=== PATIENT | female | born 1945 | race Caucasian/White ===

== ENCOUNTER → 2017-04-12 | Outpatient (CLI) | payer MEDICARE, OTHER | END | disposition home or self-care (01) | LOC: HKI 13:28 | DX: Z01.818 Encounter for other preprocedural examination (principal) | CPT/HCPCS: G0463 ==

== ENCOUNTER 2017-04-16 05:40 | Inpatient (IN) | payer MEDICARE, OTHER ==
[2017-04-16] MEDS: CEFAZOLIN 2 GM/50 ML (PMX) 50 ML (FOR WT < 120 KG) IVPB (06:00)
[2017-04-16] MEDS: ONDANSETRON 4 MG IV X 1 DOSE IV (06:22)
[2017-04-16] MEDS: ACETAMINOPHEN 1000MG/100ML IV 100 ML IVPB (06:22)
[2017-04-16] MEDS: LANSOPRAZOLE 30 MG CAP PO (06:23)
[2017-04-16] MEDS: DEXAMETHASONE 4 MG/ML 1 ML INJ IV (06:23)
[2017-04-16] MEDS ORDERED: CEFAZOLIN 1 GM INJ (07:22)
[2017-04-16] MEDS ORDERED: PROPOFOL 20 ML (07:22)
[2017-04-16] MEDS ORDERED: FENTAnyl 50 MCG/ML VIAL (07:23)
[2017-04-16] MEDS ORDERED: MIDAZOLAM 1 MG/ML 2 ML INJ (07:23)
[2017-04-16] MEDS ORDERED: ROPIVACAINE 0.2% 20 ML VIAL (07:30)
[2017-04-16] MEDS ORDERED: PHENYLephrine (100 MCG/ML) 5ML SYG (07:57)
[2017-04-16] MEDS ORDERED: KETOROLAC 30 MG INJ (08:20)
[2017-04-16] MEDS ORDERED: METOCLOPRAMIDE 10 MG INJ (08:20)
[2017-04-16] MEDS ORDERED: ONDANSETRON 4 MG INJ (08:20)
[2017-04-16] MEDS ORDERED: DEXAMETHASONE 4 MG/ML 1 ML INJ (08:20)
[2017-04-16] MEDS: TRANEXAMIC ACID 1,000 MG in D5W 100 ML AT INCISION X1 IVPB (08:25)
[2017-04-16] MEDS: TRANEXAMIC ACID 1,000 MG in D5W 100 ML AT CLOSURE X1 IVPB ×2 (08:26→09:23)
[2017-04-16] MEDS ORDERED: ROPIVACAINE 0.5 % 30 ML VIAL (08:59)
[2017-04-16] MEDS ORDERED: HYDROmorphONE 0.5 MG/0.5 ML SYG IV ×3 (09:00→15:30)
[2017-04-16] MEDS ORDERED: morphine 4 MG/ML VIAL IV ×2 (09:00→15:30)
[2017-04-16] MEDS ORDERED: NALBUPHINE HCL (10 MG/1 ML) INJ IV ×2 (09:00→15:30)
[2017-04-16] MEDS ORDERED: ACETAMINOPHEN 500 MG TAB PO ×2 (09:00→15:30)
[2017-04-16] MEDS ORDERED: morphine 2 MG INJ IV ×2 (09:00→15:30)
[2017-04-16] MEDS ORDERED: DIPHENHYDRAMINE 50 MG INJ IV ×4 (09:00→15:30)
[2017-04-16] MEDS ORDERED: HYDROCODONE/APAP (5/325) TAB PO ×2 (09:00→15:30)
[2017-04-16] MEDS ORDERED: ONDANSETRON 4 MG INJ IV ×4 (09:00→15:30)
[2017-04-16] MEDS ORDERED: NALOXONE (0.4 MG/ML) INJ IV ×3 (09:00→15:30)
[2017-04-16] MEDS ORDERED: NEOSTIGMINE 3 MG/3 ML SYRINGE (09:26)
[2017-04-16] MEDS ORDERED: GLYCOPYRROLATE 0.4 MG INJ (09:26)
[2017-04-16] MEDS: SOD CHLORIDE 0.9% 1,000 ML IV ×2 (09:33→22:03)
[2017-04-16] MEDS ORDERED: DIPHENHYDRAMINE 50 MG INJ IM (10:00)
[2017-04-16] MEDS ORDERED: BISACODYL 10 MG SUPP PR (10:00)
[2017-04-16] MEDS ORDERED: ZOLPIDEM 5 MG TAB PO (10:00)
[2017-04-16] MEDS ORDERED: SENNA/DOCUSATE NA (8.6MG/50MG) TAB PO (10:00)
[2017-04-16] MEDS ORDERED: MAGNESIUM HYDROXIDE 30ML CUP PO (10:00)
[2017-04-16] MEDS ORDERED: NA PHOSPHATE/BIPHOS 133 ML ENEMA PR (10:00)
[2017-04-16] MEDS ORDERED: oxyCODONE 5 MG TAB PO ×2 (10:00)
[2017-04-16] MEDS ORDERED: BETHANECHOL 25 MG TAB PO (10:00)
[2017-04-16] MEDS: CEFAZOLIN 1 GM/50 ML (PMX) 50 ML IVPB ×2 (10:23→17:28)
[2017-04-16] MEDS: ASPIRIN (EC) 325 MG TAB PO (10:23)
[2017-04-16] MEDS: DOCUSATE SODIUM 100 MG CAP PO (10:23)
[2017-04-16] MEDS: ONDANSETRON 4 MG INJ IV ×3 (10:24→22:00)
[2017-04-16] MEDS ORDERED: HYDROmorphONE (0.2 MG/ML) 10ML SYG IV ×6 (11:39→15:30)
[2017-04-16] MEDS: HYDROmorphONE (0.2 MG/ML) 10ML SYG IV (11:52)
[2017-04-16] MEDS ORDERED: LABETALOL HCL 20MG INJ IV ×2 (12:00→15:30)
[2017-04-16] MEDS ORDERED: MEPERIDINE 25 MG INJ IV ×2 (12:00→15:30)
[2017-04-16] MEDS ORDERED: FENTAnyl 50 MCG/ML VIAL IV ×6 (12:00→15:30)
[2017-04-16] MEDS ORDERED: METOCLOPRAMIDE 10 MG INJ IV (12:00)
[2017-04-16] MEDS ORDERED: OXYCODONE/ACETAMINOPHEN (5/325) TAB PO ×2 (12:00→15:30)
[2017-04-16] MEDS ORDERED: hydrALAzine 20 MG INJ IV ×2 (12:00→15:30)
[2017-04-16] MEDS ORDERED: EPHEDrine SULFATE 50 MG/5 ML SYG IV ×2 (12:00→15:30)
[2017-04-16] MEDS: KETOROLAC 15 MG INJ IV (12:46)
[2017-04-16] MEDS: LACTATED RINGER'S 1,000 ML IV ×2 (12:47→14:00)
[2017-04-16] MEDS ORDERED: RANITIDINE 150 MG TAB PO (13:00)
[2017-04-16] MEDS: oxyCODONE 5 MG TAB PO ×2 (13:39→17:23)
[2017-04-16] MEDS: CALCIUM/VITAMIN D (500/200) TAB PO ×2 (15:03→20:27)
[2017-04-16] MEDS ORDERED: ALBUMIN HUMAN 5% 250 ML IV (15:30)
[2017-04-16] MEDS: HYDROXYCHLOROQUINE 200 MG TAB PO (20:26)
[2017-04-16] MEDS: ATORVASTATIN 40 MG TAB PO (20:26)
[2017-04-16] MEDS: AMLODIPINE 5 MG TAB PO (20:27)
[2017-04-16] MEDS: GABAPENTIN 100 MG CAP PO (20:27)
[2017-04-16] MEDS ORDERED: BIFIDOBACTERIUM INFANTIS PO (21:00)
[2017-04-16] MEDS: LAMOTRIGINE 100 MG TAB PO (21:17)
[2017-04-16] MEDS: HYDROmorphONE 0.5 MG/0.5 ML SYG IV (21:58)
[2017-04-16] MEDS: CELECOXIB 100 MG CAP PO (21:58)
[2017-04-17] MEDS: CARISOPRODOL 350 MG TAB PO (00:31)
[2017-04-17] MEDS: oxyCODONE 5 MG TAB PO ×4 (00:32→17:07)
[2017-04-17] MEDS: CEFAZOLIN 1 GM/50 ML (PMX) 50 ML IVPB (02:14)
[2017-04-17] MEDS: ONDANSETRON 4 MG INJ IV (04:00)
[2017-04-17 05:17] LABS: ADD MAN DIFF? NO
[2017-04-17 05:19] LABS: WHITE BLOOD COUNT 10.2 10^3/ul (4.8-10.8)
[2017-04-17 05:19] LABS: BASOPHILS % 0.1 % (0.0-2.0); HEMATOCRIT 32.6 % (37.0-47.0); HEMOGLOBIN 10.5 g/dl (12.0-16.0); LYMPHOCYTES # 1.6 10^3/ul (0.8-2.9); LYMPHOCYTES % 15.5 % (15.0-51.0); MEAN CORPUSCULAR HEMOGLOBIN 30.3 pg (29.0-33.0); MEAN CORPUSCULAR HGB CONC 32.2 g/dl (32.0-37.0); MEAN CORPUSCULAR VOLUME 94.2 fl (82.0-101.0); MEAN PLATELET VOLUME 9.8 fl (7.4-10.4); MONOCYTES % 9.5 % (0.0-11.0); NEUTROPHIL # 7.6 10^3/ul (1.6-7.5); NEUTROPHILS % 74.6 % (39.0-77.0); PLATELET COUNT 246 10^3/UL (140-415); RED BLOOD COUNT 3.46 10^6/ul (4.20-5.40); RED CELL DISTRIBUTION WIDTH 13.2 % (11.5-14.5)
[2017-04-17 05:40] LABS: ANION GAP 12 (8-16); BLOOD UREA NITROGEN 14 mg/dl (7-20); CALCIUM 9.1 mg/dl (8.4-10.2); CARBON DIOXIDE 27 mmol/L (21-31); CHLORIDE 106 mmol/L (97-110); GLUCOSE 106 mg/dl (70-220); POTASSIUM 3.9 mmol/L (3.5-5.1); SODIUM 141 mmol/L (135-144)
[2017-04-17] MEDS: CELECOXIB 100 MG CAP PO (08:53)
[2017-04-17] MEDS: DOCUSATE SODIUM 100 MG CAP PO (08:53)
[2017-04-17] MEDS: VITAMIN B COMPLEX/VIT C CAP PO (08:53)
[2017-04-17] MEDS: ASPIRIN (EC) 325 MG TAB PO (08:54)
[2017-04-17] MEDS: DULOXETINE 30 MG CAP DR PO (08:54)
[2017-04-17] MEDS: FERROUS FUMARATE (SR) TAB PO (08:55)
[2017-04-17] MEDS: HYDROCHLOROTHIAZIDE 12.5 MG CAP PO (08:55)
[2017-04-17] MEDS: LAMOTRIGINE 100 MG TAB PO (08:56)
[2017-04-17] MEDS: GABAPENTIN 100 MG CAP PO (08:56)
[2017-04-17] MEDS: CALCIUM/VITAMIN D (500/200) TAB PO ×2 (08:56→13:10)
[2017-04-17] MEDS: BENAZEPRIL 20 MG TAB PO (08:57)
[2017-04-17] MEDS: AMLODIPINE 5 MG TAB PO (08:57)
[2017-04-17] MEDS ORDERED: LAMOTRIGINE 100 MG TAB PO (09:00)
[2017-04-17] MEDS: SOD CHLORIDE 0.9% 1,000 ML IV (09:14)
[2017-04-17] MEDS: HYDROXYCHLOROQUINE 200 MG TAB PO (09:14)
[2017-04-17] MEDS: FLUTICASONE 0.05% 16 GM NAS SPRAY NASAL (09:40)
[2017-04-17] MEDS: LEVOTHYROXINE 75 MCG TAB PO (09:40)
[2017-04-18] MEDS ORDERED: PANTOPRAZOLE (EC) 40 MG TAB PO (06:00)
== END 2017-04-17 17:14 | disposition home health service (06) | DRG 470 ==
LOC: REC 05:40 → MS1 11:46
PROC: 0SRC0J9 Replacement of Right Knee Joint with Synthetic Substitute, Cemented, Open Approach (ICD-10-PCS; principal; 2017-04-16 07:30)
DX: M17.11 Unilateral primary osteoarthritis, right knee (principal); D62 Acute posthemorrhagic anemia; M06.00 Rheumatoid arthritis without rheumatoid factor, unspecified site; I10 Essential (primary) hypertension; E03.9 Hypothyroidism, unspecified; J30.9 Allergic rhinitis, unspecified; K21.9 Gastro-esophageal reflux disease without esophagitis; E78.5 Hyperlipidemia, unspecified; M81.0 Age-related osteoporosis without current pathological fracture; M79.7 Fibromyalgia; Z96.652 Presence of left artificial knee joint
CPT/HCPCS: 73560; 80048; 85025; 86850; 86900; 86901; 88304; 88311; 97116; 97163; 97166; 97530

== ENCOUNTER → 2017-05-03 | Outpatient (CLI) | payer MEDICARE, OTHER | END | disposition home or self-care (01) | LOC: HKI 13:36 | DX: Z09 Encounter for follow-up examination after completed treatment for conditions other than malignant neoplasm (principal); M25.561 Pain in right knee; Z96.651 Presence of right artificial knee joint | CPT/HCPCS: 73560; 73560-RT ==

== ENCOUNTER → 2017-05-31 | Outpatient (CLI) | payer MEDICARE, OTHER | END | disposition home or self-care (01) | LOC: HKI 13:58 | DX: Z09 Encounter for follow-up examination after completed treatment for conditions other than malignant neoplasm (principal); Z96.651 Presence of right artificial knee joint | CPT/HCPCS: 73560; 73560-RT ==

== ENCOUNTER → 2018-05-19 | Outpatient (CLI) | payer MEDICARE, OTHER | END | disposition home or self-care (01) | LOC: HKI 10:38 | DX: Z09 Encounter for follow-up examination after completed treatment for conditions other than malignant neoplasm (principal); Z96.651 Presence of right artificial knee joint | CPT/HCPCS: 73565 ==